=== PATIENT | female | born 1975 | race Caucasian/White ===

== ENCOUNTER 2023-07-24 09:00 | Outpatient (AMB) | payer OTHER, SELFPAY ==
--- NOTE | 2023-07-24 09:01 | A.OFFVIS_ITS ---
Intake Vital Signs 3 07/24/23 09:02 Height 5 ft 2 in Weight 164 lb 3.91 oz BMI 30.0 BP 120/64 Blood Pressure Location Lt brachial Position Sitting Pulse 52 Pulse Source Pulse Oximeter Intake Visit Reasons: Colonoscopy Screening Compliance Assistant Required: No Accompanied by: Self / Same As Patient Allergies clendimicin Allergy (Mild, Uncoded 07/24/23 09:07) Blister jendimicin Allergy (Mild, Uncoded 07/24/23 09:07) Blister penicilin Allergy (Mild, Uncoded 07/24/23 09:07) Blister solfa Allergy (Mild, Uncoded 07/24/23 09:07) Blister HPI Colonoscopy Screening 2 HPI0 Details 48-year-old female here for preprocedura l meeting to discuss a screening colonoscopy. She is referred by Rob Richards of [facility]. PMX Anxiety * SURGICAL HISTORY C section * ALLERGIES Penicillin-rash Sulfa-rash Clindamycin stomach upset Gentomycin * [place] LABS: None in our system- labs she sent me by Email: Collected: 06/20/2023 Date Received: 06/20/2023 Date Reported: 06/21/2023 Fasting: Yes Ordered Items: LP+Non-HDL Cholesterol; ALT (SGPT); Venipuncture Date Collected: 06/20/2023 LP+Non-HDL Cholesterol Test Current Result and Flag Previous Result and Date Units Reference Interval Cholesterol, Total 01 171 mg/dL 100-199 Triglycerides 01 54 mg/dL 0-149 HDL Cholesterol 01 78 mg/dL >39 VLDL Cholesterol Lonny 11 mg/dL 5-40 LDL Chol Calc (NIH) 82 mg/dL 0-99 Non-HDL Cholesterol 93 mg/dL 0-129 ALT (SGPT) Test Current Result and Flag Previous Result and Date Units Reference Interval ALT (SGPT) 01 17 IU/L 0-32 TODAY'S VISIT The referral says the patient prefers a female endoscopist. She though she was being referred for open access and prepped herself, left message and no call back. She actually prepped herself and thought that her colonoscopy is being performed today so she is quite unhappy about this. This will be her 1st colonoscopy. She has had N/V with general anesthesia in the past and multiple drug reactions. She denies any cardiac or respiratory problems. No ID problems. There is no know fHX of CRC or polyps. [facility] Surgical History (Updated 07/24/23 @ 10:32 by ZBIGNIEW Harris) History of section Review of Systems Const Denies fatigue, Denies fever(s), Denies night sweats, Denies poor appetite and Denies weight loss ENT Reports Normal hearing present, Denies dental pain, Denies dysphagia, Denies hearing loss, Denies mouth pain, Denies odynophagia, Denies throat swelling, Denies tongue swelling and Reports other (Dentition adequate) Card Reports no additional complaints Resp Reports no additional complaints GI Details: Denies abdominal pain, Denies melena, Denies bloating, Denies hematochezia, Denies constipation, Denies GI cramping, Denies dysphagia, Denies excessive flatus, Denies early satiety, Denies heartburn, Denies diarrhea, Denies nausea, Denies odynophagia, Denies vomiting and Denies hematemesis Skin/Breast Denies pruritus, Denies lesions, Denies rash and Denies jaundice Neuro Reports Normal hearing present and Denies Abnormal speech present Endo Denies fatigue Aller/Immun Denies throat swelling and Denies tongue swelling Physical Exam Vital Signs: Last Vital Signs Pulse 52 07/24/23 09:02 BP 120/64 07/24/23 09:02 BMI result Body Mass Index 30.0 Const General: cooperative, no acute distress, well developed and well groomed Nutritional Appearance: well nourished and overweight Orientation/consciousness: oriented to person, oriented to place and oriented to time Limitations: No language barrier HEENT Head: Yes normocephalic and Yes atraumatic Eyes General: appearance normal, both eyes and all related structures Pupils: Equal, round and reactive pupils present Neck Neck: Yes normal visual inspection and Yes no lymphadenopathy Thyroid: Thyroid normal Resp Effort & Inspection: normal respiratory effort and able to speak in complete sentences Auscultation: clear to auscultation bilaterally Cardio Rate: regular rate Rhythm: regular rhythm Heart sounds: Normal, physiologic split S2 sound present Peripheral pulses: radial pulses present and posterior tibial pulses present GI Inspection: No distended and No Abdominal panniculus present Palpation (GI): Soft to palpation, nontender, no guarding, not rigid and No hepatosplenomegaly present Percussion: Yes normal to percussion Auscultation: normal bowel sounds Rectal Exam - Female: deferred Abdomen image: 2 1. surgical scar Skin General skin exam: no rashes or lesions noted, turgor normal, skin not dry, no jaundice, No spider nevi and no striae Rashes: no rashes Nails: normal Neuro General: oriented to person, oriented to place and oriented to time Cranial nerves: Yes Equal, round and reactive pupils present and Yes Normal hearing present Speech: No Abnormal speech present Extrem General: Yes normal to inspection, No clubbing, No cyanosis and No edema Psych Appearance: grossly normal and well kempt Mental Status: mental status grossly normal Speech and movement: Normal speech and movement present Affect: normal affect Attitude: cooperative Thought process: Normal thought process present and not confabulating Thought content: Normal thought content present Insight: Fair insight present (Psych) Judgement: Fair judgement present (Psych) Assessment & Plan Assessment & Plan (1) Pre-op examination: Code(s): Z01.818 - Encounter for other preprocedural examination Plan The referral says the patient prefers a female endoscopist. She though she was being referred for open access and prepped herself, left message and no call back. She actually prepped herself and thought that her colonoscopy is being performed today so she is quite unhappy about this. This will be her 1st colonoscopy. She has had N/V with general anesthesia in the past and multiple drug reactions. She denies any cardiac or respiratory problems. No ID problems. There is no know fHX of CRC or polyps. Orders: Orders 2 Comprehensive Met. Panel Today Z01.818 - Encounter for other preprocedural examination Colonoscopy - GI Use Only Today Z01.818 - Encounter for other preprocedural examination Complete Blood Count Auto Diff Today Z01.818 - Encounter for other preprocedural examination Medications: New 2 polyethylene glycol 3350 (Miralax) 238 grams PO ONCE 1 day 238 grams 0RF Coding Level of Care Code New Pt Level 3 (06717) Diagnoses Pre-op examination Z01.818
[2023-07-24 09:02] VITALS: BP 120/64; PULSE 52
== END 2023-07-24 09:38 | disposition home or self-care (01) ==
PROVIDERS: PCP Internal Medicine; Visit Provider Nurse Practitioner
DX: Z01.818 Encounter for other preprocedural examination (principal); Z12.11 Encounter for screening for malignant neoplasm of colon
CPT/HCPCS: S0285

== ENCOUNTER 2023-07-24 09:00 | Outpatient (REF) | payer OTHER, SELFPAY ==
[2023-07-24 10:24] LABS: MANUAL DIFF FLAG NO
[2023-07-24 10:45] LABS: Basophils Percent Auto 0.5 % (0-2); Eosinophils Absolute Auto 0.4 X10*3/uL (0.0-0.4); Hematocrit 38.5 % (37.0-47.0); Hemoglobin 12.8 g/dl (12.0-16.0); Imm Gran Abs Auto 0.01 X10*3/uL (0.00-0.03); Imm Gran Pct Auto 0.2 % (0.0-0.4); Lymphocytes Absolute Auto 1.4 X10*3/uL (1.2-4.9); Lymphocytes Percent Auto 21.6 % (20-40); Mean Corpuscular HGB Conc 33.2 g/dl (31.0-35.0); Mean Corpuscular Hemoglobin 30.3 pg (27.0-33.0); Mean Platelet Volume 9.8 fL (9.4-12.3); Monocytes Absolute Auto 0.4 X10*3/uL (0.1-1.2); Monocytes Percent Auto 5.9 % (2-11); Neutrophils Absolute Auto 4.3 x10*3/uL (2.0-8.3); Neutrophils Percent Auto 65.8 % (45-73); Platelet Count 275 X10*3/uL (160-400); Red Blood Count 4.23 X10*6/uL (4.20-5.50); Red Cell Distribution Width 12.3 % (11.0-16.0); White Blood Count 6.5 X10*3/uL (4.8-10.8)
[2023-07-24 11:23] LABS: Alanine Aminotransferase 29 U/L (0-31); Albumin Level 4.3 g/dL (3.5-5.0); Alkaline Phosphatase 67 U/L (39-117); Anion Gap 10 (12-20); Aspartate Amino Transferase 24 U/L (5-31); Bilirubin Total 0.6 mg/dL (0.0-1.0); Blood Urea Nitrogen 10 mg/dL (9-16); Calcium 8.8 mg/dL (8.4-10.2); Carbon Dioxide 25 mmol/L (22-29); Chloride 108 mmol/L (96-108); Estimated Glomerular Filt Rate > 60; Glucose Random 100 mg/dL (60-115); Potassium 4.2 mmol/L (3.3-5.1); Sodium 139 mmol/L (135-145)
== END 2023-07-24 09:01 | disposition home or self-care (01) ==
LOC: HO.LAB 09:00
PROVIDERS: PCP Internal Medicine; Visit Provider Nurse Practitioner
DX: Z01.818 Encounter for other preprocedural examination (principal)
CPT/HCPCS: 36415; 80053; 85025

== ENCOUNTER 2023-11-14 09:40 | Day surgery (SDC) | payer OTHER, SELFPAY ==
--- NOTE | 2023-11-13 12:02 | HO.ANESPROP2 ---
Documented by User: Miriam Lyons NP 11/13/23 12:02 HPI - Anesthesia Eval Consult details Narrative: 48yo F for Colonoscopy [facility] Active Problems Active Problems: All Active Problems Pre-op examination (Acute) Anxiety (Acute) Past Medical History Medical History (Updated 11/14/23 @ 08:31 by Princess Kidd, HORTENSIA) Depression Acute adjustment disorder with depressed mood Surgical History Surgical History (Updated 07/24/23 @ 10:32 by ZBIGNIEW Harris) History of section Social History Social History Advance Directives: No Advance Directives Information Provided: Yes Meds Allergies Allergy/AdvReac Type Severity Reaction Status Date / Time clindamycin Allergy Rash Verified 11/14/23 09:50 gentamicin Allergy Rash Verified 11/14/23 09:50 Sulfa (Sulfonamide AdvReac Rash Verified 11/14/23 09:50 Antibiotics) penicilin Allergy Mild Blister Uncoded 07/24/23 09:07 Home Medications ?Medication ?Instructions ?Recorded ?Confirmed ?Last Taken ?Type citalopram 20 mg tablet 20 mg PO DAILY 11/14/23 11/14/23 Unknown History Exam Height,Weight and Vital Signs: Height 5 ft 2 in Weight 74.389 kg Assessment and Plan Assessment Anesthesia Assessment: Chart Reviewed Documented by User: Joyce Guillen MD 11/14/23 10:01 [facility] Past Medical History Medical History (Updated 11/14/23 @ 08:31 by Princess Kidd RN) Depression Acute adjustment disorder with depressed mood Family History Family history of problems with anesthesia: No Surgical History Surgical History (Updated 07/24/23 @ 10:32 by ZBIGNIEW Harris) History of section History of Problems with Anesthesia: No Social History Social History Advance Directives: No Advance Directives Information Provided: Yes Meds Allergies Allergy/AdvReac Type Severity Reaction Status Date / Time clindamycin Allergy Rash Verified 11/14/23 09:50 gentamicin Allergy Rash Verified 11/14/23 09:50 Sulfa (Sulfonamide AdvReac Rash Verified 11/14/23 09:50 Antibiotics) penicilin Allergy Mild Blister Uncoded 07/24/23 09:07 Home Medications ?Medication ?Instructions ?Recorded ?Confirmed ?Last Taken ?Type citalopram 20 mg tablet 20 mg PO DAILY 11/14/23 11/14/23 Unknown History Exam Airway Mallampati Class: II TM Dist: >3cm Neck ROM: Full Assessment and Plan Assessment Anesthesia Assessment: Anesthesia Plan Discussed Final Anesthetic Review Family History of Problems with Anesthesia: No History of Problems with Anesthesia: No NPO: Yes ASA Class: II Final Preanesthetic Review: No Changes in Pt Med Stat, Meds/Allgs Chart Reviewed, Consent Obtained/Reviewed and Anes Risks/Benef Reviewed Patient Risk: Low Procedure Risk: Low Anesthetic Plan Anesthetic Plan: TIVA Disposition: Standard PACU
[2023-11-14 09:50] VITALS: BP 121/63; PULSE 58; RESP 20; TEMP 36.3; O2SAT 100
[2023-11-14 09:58] LABS: UPreg QC Valid YES; Urine Pregnancy NEGATIVE (NEGATIVE)
--- NOTE | 2023-11-14 10:11 | MHC.SHP ---
Pre-Procedural Eval Section A - 24 Hr Update-Section A only Date of Service: 11/14/23 Section B - Complete if H&P > 30 days Chief Complaint: Encounter for screening for malignant neoplasm of Relevant Family History (Specify if Yes): No Relevant Social History: None Present Medications: see Short Stay Collaborative assessment Medical History: Significant History ( Depression Acute adjustment disorder with depressed mood) History of Previous Operations: Relevant previous surgery/procedure and date(s) (History of section) Allergies: Allergies Allergy/AdvReac Type Severity Reaction Status Date / Time clindamycin Allergy Rash Verified 11/14/23 09:50 gentamicin Allergy Rash Verified 11/14/23 09:50 Sulfa (Sulfonamide AdvReac Rash Verified 11/14/23 09:50 Antibiotics) penicilin Allergy Mild Blister Uncoded 07/24/23 09:07 Review of Systems Sugical H&P ROS: Negative: Constitution, Cardiovascular, Respiratory, Neurological, Psychiatric, Hem-Onc, Allergic/Immunologic, Gastrointestinal, Genitourinary, Musculoskeletal, Integumentary, Endocrine and Eyes/Ears/Nose/Throat Exam Surgical H&P Exam: Normal: HEENT, Normal: Heart, Normal: Lungs, Normal: Extremities, Normal: Abdomen, Normal: Skin and Normal: Neurological Plan Diagnosis/Plan: Unchanged I have reviewed the history and physical and performed a pertinent physical examination on my patient. No changes have occurred unless specified. Time Spent With Patient Time: Total time managing care of this patient today ____ minutes.
[2023-11-14] MEDS: Lactated Ringers 1,000 ML 100 ML IVCONT (10:13)
--- NOTE | 2023-11-14 11:46 | HO.OPN-COLON ---
Colonoscopy Operative Note Operative Note Date of Service: 11/14/23 Narrative: Operative Information Procedure Description: Colonoscopy Indication: screening Anesthesia: MAC COLONOSCOPY Instrument: Olympus variable stiffness pediatric scope 190L Colonoscopy Monitoring: Vital signs and clinical assessment, continuous EKG monitoring, Pulse oximetry, Carbon Dioxide monitoring and blood pressure monitoring were done throughout the procedure. Colon withdrawal time was 10 minutes. Procedure: The patient was placed in the left lateral decubitis position and pre-procedure medications were administered. After a digital rectal examination of the ano-rectum, the video colonoscope was inserted into the rectum and advanced through the colon to the cecum/TI. The colonoscope was slowly withdrawn in a retrograde panoramic fashion and the colon mucosa was carefully examined including a retroflexed view of the rectum. Findings and interventions are described below. Procedure Difficulty: easy Findings: Terminal Ileum-normal Cecum:normal Ascending Colon: scattered diverticulosis Transverse Colon -normal Descending Colon:normal Sigmoid Colon: normal Rectum: Retroflexion with small internal hemorrhoids seen, grade I Anorectum - normal Intervention: none Colon preparation: [place] Bowel Preparation Scale Right colon; 3 Transverse colon: 3 Left colon; 3 (0 = Unprepared colon segment with mucosa not seen due to solid stool that cannot be cleared. 1 = Portion of mucosa of the colon segment seen, but other areas of the colon segment not well seen due to staining, residual stool and/or opaque liquid. 2 = Minor amount of residual staining, small fragments of stool and/or opaque liquid, but mucosa of colon segment seen well. 3 = Entire mucosa of colon segment seen well with no residual staining, small fragments of stool or opaque liquid) Impression and Post Procedure Diagnosis: diverticulosis internal hemorrhoids Plan: High fiber diet leaflet Avoid straining at stool, epsom salts and sitz bath, anusol supps or cream Repeat Colonoscopy in 10 years or earlier if clinically indicated Above findings were reviewed with the patient and relevant handouts were provided if indicated.
[2023-11-14 11:50] VITALS: BP 97/55; PULSE 65; RESP 16; TEMP 37; O2SAT 98
[2023-11-14 12:05] VITALS: BP 116/72; PULSE 55; RESP 20; TEMP 36.5; O2SAT 100
== END 2023-11-14 12:28 | disposition home or self-care (01) ==
PROVIDERS: Nurse Practitioner; PCP Internal Medicine; Visit Provider Internal Medicine Gastroenterology
PROC: 0DJD8ZZ Inspection of Lower Intestinal Tract, Via Natural or Artificial Opening Endoscopic (ICD-10-PCS; CPT 45378; principal; 2023-11-14 12:00)
DX: Z12.11 Encounter for screening for malignant neoplasm of colon (principal); K57.30 Diverticulosis of large intestine without perforation or abscess without bleeding; K64.0 First degree hemorrhoids; F32.A Depression, unspecified; F43.21 Adjustment disorder with depressed mood; Z88.0 Allergy status to penicillin; Z88.1 Allergy status to other antibiotic agents; Z88.2 Allergy status to sulfonamides; Z79.899 Other long term (current) drug therapy
CPT/HCPCS: 45378; 81025; J2704

== ENCOUNTER → 2023-11-14 09:40 | Outpatient (BNV) | payer OTHER, SELFPAY | PROVIDERS: PCP Internal Medicine; Visit Provider Internal Medicine Gastroenterology | DX: Z12.11 Encounter for screening for malignant neoplasm of colon (principal); K57.90 Diverticulosis of intestine, part unspecified, without perforation or abscess without bleeding; K64.0 First degree hemorrhoids | CPT/HCPCS: 45378 ==

== ENCOUNTER 2023-11-28 10:14 | Outpatient (AMB) | payer OTHER, SELFPAY ==
--- NOTE | 2023-11-28 10:23 | MHC.OFFVIS ---
Vital Signs 11/28/23 10:27 Height 5 ft 2 in Weight 157 lb 6.561 oz BMI 28.8 BP 120/76 Blood Pressure Location Lt brachial Position Sitting Pulse 64 Intake Visit Reasons: s/p colon Intake Note: Patient in office today in follow up of colonosocpy. CC: Patient doing well and denies having any GI symptoms or concerns today. Allergies clindamycin Allergy (Verified 11/28/23 10:32) Rash gentamicin Allergy (Verified 11/28/23 10:32) Rash Sulfa (Sulfonamide Antibiotics) Adverse Reaction (Verified 11/28/23 10:32) Rash penicilin Allergy (Mild, Uncoded 07/24/23 09:07) Blister HPI HPI s/p colon: Details: Assessment & Plan (1) Pre-op examination: Code(s): Z01.818 - Encounter for other preprocedural examination Plan The referral says the patient prefers a female endoscopist. She though she was being referred for open access and prepped herself, left message and no call back. She actually prepped herself and thought that her colonoscopy is being performed today so she is quite unhappy about this. This will be her 1st colonoscopy. She has had N/V with general anesthesia in the past and multiple drug reactions. She denies any cardiac or respiratory problems. No ID problems. There is no know fHX of CRC or polyps. Orders: Orders Comprehensive Met. Panel Today Z01.818 - Encounter for other preprocedural examination Colonoscopy - GI Use Only Today Z01.818 - Encounter for other preprocedural examination Complete Blood Count Auto Diff Today Z01.818 - Encounter for other preprocedural examination Medications: New polyethylene glycol 3350 (Miralax) 238 grams PO ONCE 1 day 238 grams 0RF LABS: Laboratory Tests 07/24/23 10:22 WBC 6.5 Hgb 12.8 Hct 38.5 Plt Count 275 Estimated GFR > 60 Total Bilirubin 0.6 AST 24 ALT 29 Alkaline Phosphatase 67 COLONOSCOPY 11/14/23 Findings: Terminal Ileum-normal Cecum:normal Ascending Colon: scattered diverticulosis Transverse Colon -normal Descending Colon:normal Sigmoid Colon: normal Rectum: Retroflexion with small internal hemorrhoids seen, grade I Anorectum - normal Intervention: none Impression and Post Procedure Diagnosis: diverticulosis internal hemorrhoids Plan: High fiber diet leaflet Avoid straining at stool, epsom salts and sitz bath, anusol supps or cream Repeat Colonoscopy in 10 years or earlier if clinically indicated TODAY'S VISIT The referral says the patient prefers a female endoscopist. She is agreeable to the 10 year recall. She requests Education as her mother father both had problems with this and painful surgery she wishes to avoid it. We discussed [id number] Preparation-H suppositories and fiber. The procedure was well tolerated. The results were explained and the patient is agreeable to the follow-up interval as stated. The bowel pattern has returned to normal. Education was provided to tell any 1st degree relatives about their findings to be sure that they are screened by age 45. Educated that they will be put on a recall list when it is time for their repeat scope but should they move out of state or away from the hospital they will need to remember along with their primary to repeat the procedure in a timely fashion to avoid any adverse complications. Return office visit as needed [facility] Medical History Depression Acute adjustment disorder with depressed mood Surgical History H/O colonoscopy History of section Physical Exam Vital Signs: Last Vital Signs Pulse 64 11/28/23 10:27 BP 120/76 11/28/23 10:27 BMI result Body Mass Index 28.8 Assessment & Plan Assessment & Plan (1) Pre-op examination: Code(s): Z01.818 - Encounter for other preprocedural examination Category: Medical Plan The referral says the patient prefers a female endoscopist. She is agreeable to the 10 year recall. She requests Education as her mother father both had problems with this and painful surgery she wishes to avoid it. We discussed [id number] Preparation-H suppositories and fiber. The procedure was well tolerated. The results were explained and the patient is agreeable to the follow-up interval as stated. The bowel pattern has returned to normal. Education was provided to tell any 1st degree relatives about their findings to be sure that they are screened by age 45. Educated that they will be put on a recall list when it is time for their repeat scope but should they move out of state or away from the hospital they will need to remember along with their primary to repeat the procedure in a timely fashion to avoid any adverse complications. Return office visit as needed Coding Level of Care Code Est Pt Level 3 (01928) Diagnoses Pre-op examination Z01.818
[2023-11-28 10:27] VITALS: BP 120/76; PULSE 64; BMI 28.8
== END 2023-11-28 10:54 | disposition home or self-care (01) ==
PROVIDERS: PCP Internal Medicine; Visit Provider Nurse Practitioner
DX: K64.0 First degree hemorrhoids (principal); K57.90 Diverticulosis of intestine, part unspecified, without perforation or abscess without bleeding
CPT/HCPCS: 99213

== ENCOUNTER → 2023-11-28 10:14 | Outpatient (BNVA) | payer OTHER, SELFPAY | PROVIDERS: PCP Internal Medicine; Visit Provider Nurse Practitioner ==